=== PATIENT | male | born 1955 | race Caucasian/White ===

== ENCOUNTER 2018-01-02 09:43 | Inpatient (IN) | payer MEDICARE, OTHER ==
[2018-01-02] VITALS (16 sets, daily range): BP systolic 128–175; BP diastolic 70–85; PULSE 107–139; RESP 22–29; TEMP 97.8–98.7; O2SAT 89–96
[~2018-01-02] VITALS: Ht 172.7 cm; Wt 112.9 kg
[2018-01-02] MEDS ORDERED: methylPREDNISolone SOD SUCC 125 MG/2 ML VIAL IV PUSH ONE (10:00)
[2018-01-02 10:19] LABS: AUTOMATED NEUTROPHIL # 4.4 TH/MM3 (1.8-7.7); BASOPHIL % 0.6 % (0.0-2.0); EOSINOPHIL # 0.1 TH/MM3 (0-0.4); EOSINOPHIL % 1.2 % (0.0-4.0); HEMOGLOBIN 9.8 GM/DL (13.0-17.0); LYMPH % 29.5 % (9.0-44.0); LYMPHOCYTE # 2.2 TH/MM3 (1.0-4.8); MEAN CELL VOLUME 81.7 FL (80.0-100.0); MEAN CORPUSCULAR HGB CONC 30.6 % (32.0-36.0); MEAN PLATELET VOLUME 7.3 FL (7.0-11.0); MONO % 8.2 % (0.0-8.0); MONOCYTE # 0.6 TH/MM3 (0-0.9); NEUT % 60.5 % (16.0-70.0); PLATELET COUNT 217 TH/MM3 (150-450); RED BLOOD COUNT 3.92 MIL/MM3 (4.50-5.90); RED CELL DISTRIBUTION WIDTH 16.2 % (11.6-17.2); WHITE BLOOD COUNT 7.3 TH/MM3 (4.0-11.0)
[2018-01-02 10:30] LABS: INTERNATIONAL NORMALIZED RATIO 0.9 RATIO; PROTHROMBIN TIME - PATIENT 9.5 SEC (9.8-11.6)
[2018-01-02] MEDS: RESP: ALBUTEROL 2.5 MG/IPRATROPIUM 0.5 MG NEB (SCH) INH (10:32)
--- NOTE | 2018-01-02 10:35 | RADRPT ---
EXAM DATE/TIME: 01/02/2018 10:10 [facility] COMPARISON: No previous studies available for comparison. INDICATIONS : Shortness of breath. MEDICAL HISTORY : None. SURGICAL HISTORY : None. ENCOUNTER: Initial ACUITY: 1 day PAIN SCORE: 0/10 LOCATION: Bilateral chest FINDINGS: There is moderate cardiomegaly present. Diffuse cephalization of pulmonary vasculature and diffuse in terstitial thickening. Osseous structures are unremarkable. CONCLUSION: Radiographic findings consistent with congestive heart failure and pulmonary edema. Mckenzie Knapp MD on January 02, 2018 at 10:32 Board Certified Radiologist. This report was verified electronically.
--- NOTE | 2018-01-02 10:38 | RADRPT ---
EXAM DATE/TIME: 01/02/2018 10:12 [facility] COMPARISON: No previous studies available for comparison. INDICATIONS : Pain from fall. MEDICAL HISTORY : None. SURGICAL HISTORY : None. ENCOUNTER: Initial ACUITY: 1 day PAIN SCORE: 4/10 LOCATION: Right ankle. FINDINGS: Three view exam was performed of the right ankle. The bony structures are in normal alignment. No e vidence of acute fracture, dislocation, or soft tissue swelling. There is a cortical lucency involvi ng the medial malleolus with no adjacent soft tissue edema likely reflective of an old fracture. The ankle mortise is intact. No radiopaque foreign bodies are seen. Bony mineralization is normal. CONCLUSION: No acute disease. Mckenzie Knapp MD on January 02, 2018 at 10:34 Board Certified Radiologist. This report was verified electronically.
--- NOTE | 2018-01-02 10:38 | PD ---
HPI Chief Complaint: Fall Time Seen by Provider: 09:55 Travel History International Travel<30 days: No Contact w/Intl Traveler<30days: No Traveled to known affect area: No History of Present Illness HPI 62-year-old male with history of COPD on 4 L home O2, here by ambulance for evaluation of left ankle pain after mechanical fall. Patient states he felt weak and dizzy after waking up this morning and thought his sugar may be low so he ate some candy. He then fell to the ground, afterwards noticing immediate pain to his bilateral ankles, left greater than right, moderate, worse with movements. He denies LOC. He is unable to bear weight because of the pain. No neck or back pain. No upper extremity pain. No pain in any other joint. PFSH Past Medical History Diabetes: Yes ?: Not Social History Tobacco Use: No (Former smoker) Allergies-Medications (Allergen,Severity, Reaction): Coded Allergies: No Known Allergies (Unverified , 01/02/18) Reported Meds & Prescriptions Reported Meds & Active Scripts Active Reported Lanoxin (Digoxin) 125 Mcg Tablet 125 Mcg PO DAILY Vitamin B-12 (Cyanocobalamin) 1,000 Mcg Tab 1,000 Mcg PO DAILY Vitamin E (Vitamin E Acid Succinate) 400 Unit Tablet 400 Units PO DAILY Lisinopril 5 Mg Tab 5 Mg PO DAILY Diltiazem CD 24 HR 120 Mg Caper 120 Mg PO DAILY Isosorbide Mononitrate ER (Isosorbide Mononitrate) 30 Mg Ceasar 15 Mg PO DAILY Aspirin Adult Low Strength (Aspirin) 81 Mg Tabdr 81 Mg PO DAILY Gabapentin 300 Mg Cap 300 Mg PO BID Flomax (Tamsulosin HCl) 0.4 Mg Cap 0.4 Mg PO BID Proscar (Finasteride) 5 Mg Tab 5 Mg PO DAILY Do not crush. Metformin (Metformin HCl) 500 Mg Tab 500 Mg PO BID Hydrocodone-Acetamin 5-325 mg (Hydrocodone/Acetaminophen) 5 Mg-325 Mg Tablet 1 Tab PO Q6HR PRN Carafate (Sucralfate) 1 Gram Tab 1 Gm PO ACHS On empty stomach Omeprazole 20 Mg Tab 20 Mg PO BIDAC One-A-Day Mens (Multiple Vitamin) 400 Mcg-300 Mcg Tab 1 Tab PO DAILY Review of Systems Except as stated in HPI: all other systems reviewed are Neg Physical Exam Narrative GENERAL: Well-developed, well-nourished, moderate respiratory distress, pursed lip breathing SKIN: Focused skin assessment warm/dry. HEAD: Atraumatic. Normocephalic. EYES: Pupils equal and round. No scleral icterus. No injection or drainage. ENT: Mucous membranes pink and dry. Perioral cyanosis. NECK: Trachea midline. No JVD. CARDIOVASCULAR: Regular rate and rhythm. 1+ bilateral dorsalis pedis pulses. RESPIRATORY: Moderate resp distress, pursed lip breathing, speaking a few words at a time, poor air movement bilaterally GASTROINTESTINAL: Abdomen soft, non-tender, nondistended. MUSCULOSKELETAL: Moderate diffuse swelling to the left ankle with medial and lateral joint space tenderness without obvious bony deformity. The rest of his joints and extremities are without deformity, without tenderness, with normal range of motion. No proximal fibular tenderness bilaterally. All compartments in bilateral lower extremities are supple. NEUROLOGICAL: Awake and alert. No obvious cranial nerve deficits. Motor grossly within normal limits. Normal speech. PSYCHIATRIC: Appropriate mood and affect; insight and judgment normal. Data Data Last Documented VS Vital Signs Date Time Temp Pulse Resp B/P (MAP) Pulse Ox O2 Delivery O2 Flow Rate FiO2 01/02/18 11:27 25 01/02/18 11:15 124 128/70 (89) 90 BiPAP 40 01/02/18 10:21 6.00 01/02/18 09:53 97.8 Orders Orders Sepsis Workup Initiated (01/02/18 ) Electrocardiogram (01/02/18 09:59) Complete Blood Count With Diff (01/02/18 09:59) Comprehensive Metabolic Panel (01/02/18 09:59) Prothrombin Time / Inr (Pt) (01/02/18 09:59) Act Partial Throm Time (Ptt) (01/02/18 09:59) Lactic Acid Sepsis Protocol (01/02/18 09:59) Ckmb (Isoenzyme) Profile (01/02/18 09:59) Troponin I (01/02/18 09:59) Urinalysis - C+S If Indicated (01/02/18 09:59) Influenzae A/B Antigen (01/02/18 09:59) Blood Culture (01/02/18 09:59) Chest, Single Ap (01/02/18 09:59) Ecg Monitoring (01/02/18 09:59) Iv Access Insert/Monitor (5/12/18 09:59) Oximetry (01/02/18 09:59) Oxygen Administration (01/02/18 09:59) Methylprednisolone So Succ Inj (Solumedr (01/02/18 10:00) Albuterol-Ipratropium Neb (Duoneb Neb) (01/02/18 10:00) Ankle, Complete (Bcc5ucs) (01/02/18 ) Ankle, Complete (Mge7alw) (01/02/18 ) Arterial Blood Gas (Abg) (01/02/18 ) Splinting (01/02/18 ) B-Type Natriuretic Peptide (01/02/18 10:50) Morphine Inj (Morphine Inj) (01/02/18 11:00) Resp Bipap / Cpap Non Invas Vt (01/02/18 ) Morphine Inj (Morphine Inj) (01/02/18 11:30) Fiberglass Short Leg Splint Ad (01/02/18 ) Fiberglass Sugartong Sp Ad Sl (01/02/18 ) Admit Order (Ed Use Only) (01/02/18 11:49) Consult Orthopedic (01/02/18 ) Aspirin Ec (Ecotrin Ec) (01/03/18 09:00) Cyanocobalamin (Vitamin B12) (01/03/18 09:00) Digoxin (Lanoxin) (01/03/18 09:00) Diltiazem Cd (Cardizem Cd) (01/03/18 09:00) Finasteride (Proscar) (01/03/18 09:00) Gabapentin (Neurontin) (01/02/18 21:00) Acetamin-Hydrocod 325-5 Mg ([place] 5-325 (01/02/18 12:00) Sucralfate (Carafate) (01/02/18 12:00) Tamsulosin (Flomax) (01/02/18 21:00) Pantoprazole (Protonix) (01/02/18 16:00) Isosorbide Mononitrate (Ismo) (01/03/18 09:00) Labs Laboratory Tests Test 01/02/18 10:02 01/02/18 10:49 White Blood Count 7.3 TH/MM3 Red Blood Count 3.92 MIL/MM3 Hemoglobin 9.8 GM/DL Hematocrit 32.0 % Mean Corpuscular Volume 81.7 FL Mean Corpuscular Hemoglobin 25.0 PG Mean Corpuscular Hemoglobin Concent 30.6 % Red Cell Distribution Width 16.2 % Platelet Count 217 TH/MM3 Mean Platelet Volume 7.3 FL Neutrophils (%) (Auto) 60.5 % Lymphocytes (%) (Auto) 29.5 % Monocytes (%) (Auto) 8.2 % Eosinophils (%) (Auto) 1.2 % Basophils (%) (Auto) 0.6 % Neutrophils # (Auto) 4.4 TH/MM3 Lymphocytes # (Auto) 2.2 TH/MM3 Monocytes # (Auto) 0.6 TH/MM3 Eosinophils # (Auto) 0.1 TH/MM3 Basophils # (Auto) 0.0 TH/MM3 CBC Comment DIFF FINAL Differential Comment Prothrombin Time 9.5 SEC Prothromb Time International Ratio 0.9 RATIO Activated Partial Thromboplast Time 21.9 SEC Blood Urea Nitrogen 16 MG/DL Creatinine 1.18 MG/DL Random Glucose 132 MG/DL Total Protein 6.6 GM/DL Albumin 3.0 GM/DL Calcium Level 8.5 MG/DL Alkaline Phosphatase 88 U/L Aspartate Amino Transf (AST/SGOT) 24 U/L Alanine Aminotransferase (ALT/SGPT) 43 U/L Total Bilirubin 0.2 MG/DL Sodium Level 141 MEQ/L Potassium Level 4.9 MEQ/L Chloride Level 96 MEQ/L Carbon Dioxide Level 40.5 MEQ/L Anion Gap 5 MEQ/L Estimat Glomerular Filtration Rate 63 ML/MIN Lactic Acid Level 1.8 mmol/L Total Creatine Kinase 42 U/L Troponin I LESS THAN 0.02 NG/ML B-Type Natriuretic Peptide 107 PG/ML Blood Gas Puncture Site LT RADIAL Blood Gas Patient Temperature 98.6 Blood Gas HCO3 42 mmol/L Blood Gas Base Excess 15.1 mmol/L Blood Gas Oxygen Saturation 91 % Arterial Blood pH 7.30 Arterial Blood Partial Pressure CO2 87 mmHg Arterial Blood Partial Pressure O2 68 mmHG Arterial Blood Oxygen Content 12.7 Vol % Arterial Blood Carboxyhemoglobin 1.4 % Arterial Blood Methemoglobin 0.9 % Blood Gas Hemoglobin 9.8 G/DL Oxygen Delivery Device NASAL CANNULA Blood Gas Liter Flow 6 L/M [facility] Medical Decision Making Medical Screen Exam Complete: Yes Emergency Medical Condition: Yes Differential Diagnosis Left ankle fracture versus sprain, COPD exacerbation, pneumonia, PE, metabolic normality, hypoxia Narrative Course Initial vital signs show heart rate 108, blood pressure 133/72, pulse ox 90% on 6 L nasal cannula, oral temp of 98.7F. CBC: WBC 7.3, hemoglobin 9.8, hematocrit 32, platelets 217. CMP is remarkable for bicarb 40.5 Cardiac enzymes are negative. BNP is 107. Lactic acid is 1.8. ABG on 6 L nasal cannula: PH 7.3, PCO2 87, PO2 68. Chest x-ray is consistent with CHF. Left ankle x-ray shows comminuted and mildly displaced fractures of the medial malleolus, distal fibula, and posterior tibia. Patient was placed in a Islas splint. Patient was also placed on BiPAP. Patient will be admitted for further treatment and evaluation of CHF exacerbation, hypercapnia, closed left ankle fracture. Case discussed with cloth cutting inspector Dr. Carlin who will admit the patient to his service. The patient was made aware of all findings and plan for admission. Critical Care Narrative Aggregate critical care time was 35 minutes. Time to perform other separately billable procedures was not included in the critical care time. My time did not include minutes spent treating any other patients simultaneously or on activities that did not directly contribute to the patient's treatment. The services I provided to this patient were to treat and/or prevent clinically significant deterioration that could result in: , permanent disability, acute respiratory failure, worsening clinical condition I provided critical care services requiring my management, as noted below: Chart data review, documentation time, medication orders and management, vital sign assessments/reviewing monitor data, ordering and reviewing lab tests, ordering and interpreting/reviewing x-rays and diagnostic studies, care of the patient and discussion of the patient with the admitting physicians. Diagnosis Primary Impression: CHF exacerbation Qualified Codes: I50.9 - Heart failure, unspecified Additional Impressions: Hypercapnia Closed left ankle fracture Qualified Codes: S82.892A - Other fracture of left lower leg, initial encounter for closed fracture Admitting Information Admitting Physician Requests: Admit Scripts Hydrocodone-Acetaminophen ([place]) 7.5-325 mg Tab 1-2 TAB PO Q6H Y for PAIN, #90 TAB 0 Refills Prov: Alvaro Powell MD 01/03/18 Aspirin (Aspirin Low Dose) 81 Mg Chew 81 MG CHEW BID for Prevent Blood Clot for 30 Days, #60 TAB 0 Refills Prov: Alvaro Powell MD 01/03/18 Nima Peck MD January 02, 2018 10:38
--- NOTE | 2018-01-02 10:41 | RADRPT ---
EXAM DATE/TIME: 01/02/2018 10:15 [facility] COMPARISON: No previous studies available for comparison. INDICATIONS : Pain from fall. MEDICAL HISTORY : None. SURGICAL HISTORY : None. ENCOUNTER: Initial ACUITY: 1 day PAIN SCORE: 10/10 LOCATION: Left ankle. FINDINGS: 3 views of the left ankle demonstrate multiple fractures. There is a avulsion fracture of the medial malleolus with 7 mm of inferior displacement. There is an oblique fracture through the distal fibula with extension to the ankle mortise. The posterior tibia demonstrates an area of cortical irregularit y concerning for a nondisplaced fracture. The ankle mortise is disrupted. The talar dome is intact. S oft tissues demonstrate diffuse edema. The bones appear grossly normal mineralization. CONCLUSION: Comminuted mildly displaced fractures of the medial malleolus, distal fibula and suspicion for a post erior tibial fracture. The ankle mortise appears disrupted. The talar dome is intact. Mckenzie Knapp MD on January 02, 2018 at 10:36 Board Certified Radiologist. This report was verified electronically.
[2018-01-02] MEDS ORDERED: MORPHINE SULFATE 2 MG/ML SYRINGE IV PUSH ONE (11:00)
[2018-01-02 11:05] LABS: AST (GOT) 24 U/L (15-37); BICARBONATE 40.5 MEQ/L (21.0-32.0); BLOOD UREA NITROGEN 16 MG/DL (7-18); CALCIUM 8.5 MG/DL (8.5-10.1); CHLORIDE 96 MEQ/L (98-107); CREATININE 1.18 MG/DL (0.60-1.30); GLOMERULAR FILTRATION RATE 63 ML/MIN (>89); GLUCOSE,RANDOM 132 MG/DL (74-106); SODIUM (NA) 141 MEQ/L (136-145)
[2018-01-02 11:06] LABS: ALT (GPT) 43 U/L (12-78)
[2018-01-02 11:10] LABS: ALKALINE PHOSPHATASE 88 U/L (45-117); TOTAL BILIRUBIN ADULT 0.2 MG/DL (0.2-1.0); TOTAL PROTEIN 6.6 GM/DL (6.4-8.2); TROPONIN I LESS THAN 0.02 NG/ML (0.02-0.05)
[2018-01-02] MEDS ORDERED: GABA300C5 PO (11:23)
[2018-01-02] MEDS ORDERED: VITA400T18 PO (11:23)
[2018-01-02] MEDS ORDERED: ONE-TAB4 PO (11:23)
[2018-01-02] MEDS ORDERED: METF500T PO (11:23)
[2018-01-02] MEDS ORDERED: DILT120C50 PO (11:23)
[2018-01-02] MEDS ORDERED: VITA10002 PO (11:23)
[2018-01-02] MEDS ORDERED: OMEP20TA93 PO (11:23)
[2018-01-02] MEDS ORDERED: TAMS5CAP PO (11:23)
[2018-01-02] MEDS ORDERED: CARA1TAB6 PO (11:23)
[2018-01-02] MEDS ORDERED: HYDR-3516 PO (11:23)
[2018-01-02] MEDS ORDERED: LANO0.12 PO (11:23)
[2018-01-02] MEDS ORDERED: LISI-519 PO (11:23)
[2018-01-02] MEDS ORDERED: PROS5TAB PO (11:23)
[2018-01-02] MEDS ORDERED: ISOS30TA3 PO (11:23)
[2018-01-02] MEDS ORDERED: ASPI81TA16 PO (11:23)
[2018-01-02] MEDS ORDERED: MORPHINE SULFATE 4 MG/ML INJ IV PUSH ONE (11:30)
[2018-01-02] MEDS ORDERED: ACETAMINOPHEN/HYDROcodone 325 MG/5 MG TAB PO PRN (12:00)
[2018-01-02] MEDS ORDERED: PILL SPLITTER OTHER PRN (12:45)
--- NOTE | 2018-01-02 13:03 | HHI.HP ---
[facility] Service Critical Care Medicine Primary Care Physician Unknown Admission Diagnosis CHF exacerbation, hypercapnia, closed left ankle fracture Diagnosis: (1) Acute hypoxemic hypercarbic respiratory failure Diagnosis: Principal (2) Acute exacerbation of CHF (congestive heart failure) Diagnosis: Principal (3) Acute exacerbation of chronic obstructive pulmonary disease (COPD) Diagnosis: Principal (4) Closed left ankle fracture Diagnosis: Principal (5) Atrial fibrillation with RVR Diagnosis: Principal Chief Complaint: Status post fall with left ankle fracture COPD exacerbation Travel History International Travel<30 Days: No Contact w/Intl Traveler <30 Da: No Traveled to Known Affected Are: No History of Present Illness Patient is a 62-year-old male with past medical history significant for COPD on home oxygen 4 L, CHF, atrial fibrillation who presented to the emergency department for evaluation of left ankle pain after sustaining a fall. He felt weak, dizzy after waking up today and sustained a fall, had immediate pain to his bilateral ankles, predominantly left foot and ankle. X-ray of the left foot showed comminuted mildly displaced fractures of the medial malleolus, distal fibula and possible posterior tibial fracture. Dr. Islas ortho was consulted and patient's left foot was placed in a splint. The patient was hypoxemic and in moderate respiratory distress in the ED. His ABG on 6 L nasal cannula showed 7.3/80 7/69. Patient was placed on BiPAP 10/ with some improvement oxygenation. Chest x-ray showed evidence of CHF. Patient received IV Solu-Medrol and breathing treatments and critical care was requested to admit this patient for COPD CHF exacerbation and acute hypoxemic and hypercapnic respiratory failure. I evaluated the patient in the ED. He is in moderate distress on BiPAP. I am unable to get much history from him due to his shortness of breath on BiPAP. I have added IV Lasix 40 mg every 12, added scheduled Solu-Medrol and DuoNeb breathing treatments. Also empiric Levaquin for COPD exacerbation. His heart rate is 117-120. I will give additional dose of digoxin 0.25 mg IV 1. Patient may need esmolol or Amiodarone infusion if rate is not adequately controlled Review of Systems ROS Limitations: Clinical Condition (On BiPAP) Past Family Social History Allergies: Coded Allergies: No Known Allergies (Unverified , 01/02/18) Past Medical History COPD on 4 L home oxygen CHF Chronic atrial fibrillation Morbid obesity Type 2 diabetes Past Surgical History Unable to obtain any surgical history due to clinical condition Reported Medications Lanoxin (Digoxin) 125 Mcg Tablet 125 Mcg PO DAILY Vitamin B-12 (Cyanocobalamin) 1,000 Mcg Tab 1,000 Mcg PO DAILY Vitamin E (Vitamin E Acid Succinate) 400 Unit Tablet 400 Units PO DAILY Lisinopril 5 Mg Tab 5 Mg PO DAILY Diltiazem CD 24 HR 120 Mg Caper 120 Mg PO DAILY Isosorbide Mononitrate ER (Isosorbide Mononitrate) 30 Mg Ceasar 15 Mg PO DAILY Aspirin Adult Low Strength (Aspirin) 81 Mg Tabdr 81 Mg PO DAILY Gabapentin 300 Mg Cap 300 Mg PO BID Flomax (Tamsulosin HCl) 0.4 Mg Cap 0.4 Mg PO BID Proscar (Finasteride) 5 Mg Tab 5 Mg PO DAILY Metformin (Metformin HCl) 500 Mg Tab 500 Mg PO BID Hydrocodone-Acetamin 5-325 mg (Hydrocodone/Acetaminophen) 5 Mg-325 Mg Tablet 1 Tab PO Q6HR PRN Carafate (Sucralfate) 1 Gram Tab 1 Gm PO ACHS Omeprazole 20 Mg Tab 20 Mg PO BIDAC One-A-Day Mens (Multiple Vitamin) 400 Mcg-300 Mcg Tab 1 Tab PO DAILY Active Ordered Medications Reviewed Family History Unable to obtain as the patient is on BiPAP and short of breath Social History Quit smoking 2 years ago, did not consume alcohol now Physical Exam Vital Signs Vital Signs Date Time Temp Pulse Resp B/P (MAP) Pulse Ox O2 Delivery O2 Flow Rate FiO2 01/02/18 12:05 130 25 143/81 (101) 89 BiPAP 40 01/02/18 11:27 25 01/02/18 11:15 124 25 128/70 (89) 90 BiPAP 40 01/02/18 11:15 96 40 01/02/18 10:21 89 Nasal Cannula 6.00 01/02/18 10:21 89 Nasal Cannula 6.00 01/02/18 09:53 97.8 107 22 133/72 (92) 90 Nasal Cannula 6.00 01/02/18 09:53 22 90 Nasal Cannula 6.00 01/02/18 09:44 98.7 108 22 133/72 (92) 90 Physical Exam GENERAL: Well-developed, well-nourished, moderate respiratory distress, currently on BiPAP SKIN: WARM AND DRY HEAD: Atraumatic. Normocephalic. EYES: Pupils equal and round. No injection or drainage. ENT: Mucous membranes dry. BiPAP mask limits exam NECK: Trachea midline. No JVD. CARDIOVASCULAR: Currently in A. fib with RVR. No murmurs RESPIRATORY: Moderate resp distress, on BiPAP, poor air movement bilaterally with bilateral expiratory wheezing GASTROINTESTINAL: Abdomen soft, non-tender, nondistended. MUSCULOSKELETAL: Left foot in splint NEUROLOGICAL: Awake and alert. No obvious cranial nerve deficits. Motor grossly within normal limits. Normal speech. Laboratory Laboratory Tests Test 01/02/18 10:02 01/02/18 10:49 White Blood Count 7.3 Red Blood Count 3.92 Hemoglobin 9.8 Hematocrit 32.0 Mean Corpuscular Volume 81.7 Mean Corpuscular Hemoglobin 25.0 Mean Corpuscular Hemoglobin Concent 30.6 Red Cell Distribution Width 16.2 Platelet Count 217 Mean Platelet Volume 7.3 Neutrophils (%) (Auto) 60.5 Lymphocytes (%) (Auto) 29.5 Monocytes (%) (Auto) 8.2 Eosinophils (%) (Auto) 1.2 Basophils (%) (Auto) 0.6 Neutrophils # (Auto) 4.4 Lymphocytes # (Auto) 2.2 Monocytes # (Auto) 0.6 Eosinophils # (Auto) 0.1 Basophils # (Auto) 0.0 CBC Comment DIFF FINAL Differential Comment Prothrombin Time 9.5 Prothromb Time International Ratio 0.9 Activated Partial Thromboplast Time 21.9 Blood Urea Nitrogen 16 Creatinine 1.18 Random Glucose 132 Total Protein 6.6 Albumin 3.0 Calcium Level 8.5 Alkaline Phosphatase 88 Aspartate Amino Transf (AST/SGOT) 24 Alanine Aminotransferase (ALT/SGPT) 43 Total Bilirubin 0.2 Sodium Level 141 Potassium Level 4.9 Chloride Level 96 Carbon Dioxide Level 40.5 Anion Gap 5 Estimat Glomerular Filtration Rate 63 Lactic Acid Level 1.8 Total Creatine Kinase 42 Troponin I LESS THAN 0.02 B-Type Natriuretic Peptide 107 Blood Gas Puncture Site LT RADIAL Blood Gas Patient Temperature 98.6 Blood Gas HCO3 42 Blood Gas Base Excess 15.1 Blood Gas Oxygen Saturation 91 Arterial Blood pH 7.30 Arterial Blood Partial Pressure CO2 87 Arterial Blood Partial Pressure O2 68 Arterial Blood Oxygen Content 12.7 Arterial Blood Carboxyhemoglobin 1.4 Arterial Blood Methemoglobin 0.9 Blood Gas Hemoglobin 9.8 Oxygen Delivery Device NASAL CANNULA Blood Gas Liter Flow 6 Date/Time Source Procedure Growth Status 01/02/18 10:07 Blood Peripheral Aerobic Blood Culture Pending Received 01/02/18 10:07 Blood Peripheral Anaerobic Blood Culture Pending Received 01/02/18 10:02 Nasal Washing Influenza Types A,B Antigen (SABRINA) - Final NEGATIVE FOR FLU A AND B ANTIGEN.... Complete Result Diagram: 01/02/18 1002 01/02/18 1002 Imaging Chest x-ray shows pulmonary X-ray left ankle shows fracture as above Septic Shock Reassessment Septic shock perfusion: reassessment completed Caprini VTE Risk Assessment Caprini VTE Risk Assessment: Mod/High Risk (score >= 2) Caprini Risk Assessment Model Point Value = 1 Point Value = 2 Point Value = 3 Point Value = 5 Age 41-60 Minor surgery BMI > 25 kg/m2 Swollen legs Varicose veins or History of unexplained or recurrent spontaneous Oral contraceptives or hormone replacement Sepsis (< 1 month) Serious lung disease, including pneumonia (< 1 month) Abnormal pulmonary function Acute myocardial infarction Congestive heart failure (< 1 month) History of inflammatory bowel disease Medical patient at bed rest Age 61-74 Arthroscopic surgery Major open surgery (> 45 min) Laparoscopic surgery (> 45 min) Malignancy Confined to bed (> 72 hours) Immobilizing plaster cast Central venous access Age >= 75 History of VTE Family history of VTE Factor V Leiden Prothrombin [id number] Lupus anticoagulant Anticardiolipin antibodies Elevated serum homocysteine Heparin-induced thrombocytopenia Other congenital or acquired thrombophilia Stroke (< 1 month) Elective arthroplasty Hip, pelvis, or leg fracture Acute spinal cord injury (< 1 month) Prophylaxis Regimen Total Risk Factor Score Risk Level Prophylaxis Regimen 0-1 Low Early ambulation 2 Moderate Order ONE of the following: *Sequential Compression Device (SCD) *Heparin 5000 units SQ BID 3-4 Higher Order ONE of the following medications: *Heparin 5000 units SQ TID *Enoxaparin/Lovenox 40 mg SQ daily (WT < 150 kg, CrCl > 30 mL/min) *Enoxaparin/Lovenox 30 mg SQ daily (WT < 150 kg, CrCl > 10-29 mL/min) *Enoxaparin/Lovenox 30 mg SQ BID (WT < 150 kg, CrCl > 30 mL/min) AND/OR *Sequential Compression Device (SCD) 5 or more Highest Order ONE of the following medications: *Heparin 5000 units SQ TID (Preferred with Epidurals) *Enoxaparin/Lovenox 40 mg SQ daily (WT < 150 kg, CrCl > 30 mL/min) *Enoxaparin/Lovenox 30 mg SQ daily (WT < 150 kg, CrCl > 10-29 mL/min) *Enoxaparin/Lovenox 30 mg SQ BID (WT < 150 kg, CrCl > 30 mL/min) AND *Sequential Compression Device (SCD) Assessment and Plan Assessment and Plan NEURO: Musculoskeletal skeletal pain from left ankle fracture -As needed [place] for pain. Morphine for breakthrough pain RESP: Acute on chronic hypoxemic and hypercarbic respiratory failure Acute COPD exacerbation -BiPAP 07/28. DuoNeb every 4 hours scheduled and as needed -IV Solu-Medrol 125 mg given in the ED, continue 60 mg IV every 8 hours -Add Symbicort and Spiriva -Levaquin empirically for COPD exacerbation CV: CHF exacerbation Atrial fibrillation with RVR -Start IV Lasix 40 mg 12 hour -Continue home rate control medications including digoxin Cardizem -Use esmolol or amiodarone drip for rate control -Check 2D echo -Continue aspirin -Patient is not on full anticoagulation at home GI: -N.p.o. except meds. Full liquid diet if respiratory status improved -Continue home PPI : -Monitor renal function closely. Place English catheter if needed ID: -Check sputum culture, IV Levaquin for COPD exacerbation HEME: -Monitor CBC, CMP, coags ENDO: Type 2 diabetes -Electrolyte replacement per protocol -Sliding-scale insulin hold metformin PROPH: -Bilateral lower extremity SCDs. Heparin sq/PPI LINES: Utilize peripheral IVs, central line if needed CC time 42 min Code Status Full Discussed Condition With Dr. Peck and the patient Problem Qualifiers (1) Closed left ankle fracture: Qualified Codes: S82.892A - Other fracture of left lower leg, initial encounter for closed fracture Jose Carlin MD January 02, 2018 13:03
[2018-01-02] MEDS: INSULIN ASPART SUPPLEMENTAL SCALE SQ SCH ×3 (13:15→21:19)
[2018-01-02] MEDS ORDERED: RESP: ALBUTEROL 2.5 MG/IPRATROPIUM 0.5 MG NEB (PRN) NEB (13:15)
[2018-01-02] MEDS ORDERED: DIGOXIN 0.5 MG/2 ML VIAL IV PUSH ONE (13:30)
[2018-01-02] MEDS: SUCRALFATE 1 GM TAB PO SCH ×3 (14:44→21:19)
[2018-01-02] MEDS: LEVOFLOXACIN 750 MG PREMIX INJ 150 ML IV SCH (14:45)
[2018-01-02] MEDS: BUDESONIDE-FORMOTEROL 160/4.5 MCG INHALER INH SCH ×2 (14:45→21:19)
[2018-01-02] MEDS: HEPARIN SODIUM - SQ 10,000 UNITS/ML VIAL SQ SCH ×2 (14:46→21:19)
[2018-01-02] MEDS: RESP: ALBUTEROL 2.5 MG/IPRATROPIUM 0.5 MG NEB (SCH) NEB ×3 (14:56→23:36)
[2018-01-02] MEDS: PANTOPRAZOLE SOD 20 MG DELAYED RELEASE TAB PO SCH (16:50)
[2018-01-02 16:54] LABS: BACTERIA, URINE MANY /hpf; BILIRUBIN, URINE NEG (NEG); BLOOD, URINE TRACE (NEG); GLUCOSE,URINE NEG (NEG); KETONE, URINE NEG (NEG); MUCUS URINE FEW /lpf (OCC); NITRITE,URINE NEG (NEG); PH, URINE 5.5 (5.0-8.5); URINE COLOR YELLOW (YELLW/STRAW); URINE LEUKOCYTE ESTERASE TRACE (NEG)
[2018-01-02] MEDS: methylPREDNISolone SOD SUCC 125 MG/2 ML VIAL IV PUSH SCH (17:09)
[2018-01-02] MEDS: FUROSEMIDE 40 MG/4 ML VIAL IV PUSH SCH (17:10)
--- NOTE | 2018-01-02 18:03 | EKG ---
Date Performed: 01/02/2018 Time Performed: 12:00:30 PTAGE: 62 years EKG: ATRIAL FIBRILLATION WITH RAPID VENTRICULAR RESPONSE MARKED LEFT AXIS DEVIATION MODERATE ST DEPRESSION ABNORMAL ECG NO PREVIOUS TRACING DOCTOR: Pa Barnhart Interpretating Date/Time 01/02/2018 18:02:57
[2018-01-02] MEDS: TAMSULOSIN HCL 0.4 MG CAP PO SCH (21:19)
[2018-01-02] MEDS: GABAPENTIN 300 MG CAP PO SCH (21:19)
[2018-01-02] MEDS: MORPHINE SULFATE 4 MG/ML INJ IV PUSH PRN (21:20)
[2018-01-03] VITALS (12 sets, daily range): BP systolic 97–155; BP diastolic 55–84; PULSE 103–119; RESP 18–25; TEMP 97.7–99; O2SAT 89–96
[2018-01-03] MEDS: methylPREDNISolone SOD SUCC 125 MG/2 ML VIAL IV PUSH SCH (00:52)
[2018-01-03] MEDS: INSULIN ASPART SUPPLEMENTAL SCALE SQ SCH ×7 (03:58→23:54)
[2018-01-03] MEDS: MORPHINE SULFATE 4 MG/ML INJ IV PUSH PRN ×4 (03:59→20:41)
[2018-01-03] MEDS: RESP: ALBUTEROL 2.5 MG/IPRATROPIUM 0.5 MG NEB (SCH) NEB ×4 (04:24→21:08)
--- NOTE | 2018-01-03 04:39 | RADRPT ---
EXAM DATE/TIME: 01/03/2018 04:24 [facility] COMPARISON: CHEST SINGLE AP, January 02, 2018, 10:10. INDICATIONS : Shortness of breath, possible pulmonary edema. MEDICAL HISTORY : None. SURGICAL HISTORY : None. ENCOUNTER: Subsequent ACUITY: 2 days PAIN SCORE: 0/10 LOCATION: Bilateral chest FINDINGS: A single view of the chest demonstrates the lungs to be symmetrically aerated without evidence of mas s, infiltrate or effusion. The heart size remains prominent with no perihilar edema. Osseous structu res are intact. CONCLUSION: Mild cardiomegaly with no acute cardiopulmonary disease. Froylan Feliciano MD on January 03, 2018 at 4:37 Board Certified Radiologist. This report was verified electronically.
[2018-01-03 05:01] LABS: ALBUMIN 3.1 GM/DL (3.4-5.0); ALKALINE PHOSPHATASE 81 U/L (45-117); ALT (GPT) 36 U/L (12-78); AST (GOT) 21 U/L (15-37); BICARBONATE 38.1 MEQ/L (21.0-32.0); BLOOD UREA NITROGEN 22 MG/DL (7-18); CALCIUM 9.6 MG/DL (8.5-10.1); CHLORIDE 93 MEQ/L (98-107); CREATININE 1.35 MG/DL (0.60-1.30); GLOMERULAR FILTRATION RATE 54 ML/MIN (>89); GLUCOSE,RANDOM 183 MG/DL (74-106); MAGNESIUM 2.1 MG/DL (1.5-2.5); SODIUM (NA) 138 MEQ/L (136-145); TOTAL BILIRUBIN ADULT 0.3 MG/DL (0.2-1.0); TOTAL PROTEIN 6.8 GM/DL (6.4-8.2)
[2018-01-03] MEDS: HEPARIN SODIUM - SQ 10,000 UNITS/ML VIAL SQ SCH (05:29)
[2018-01-03] MEDS: PANTOPRAZOLE SOD 20 MG DELAYED RELEASE TAB PO SCH ×2 (05:30→15:00)
[2018-01-03] MEDS: SUCRALFATE 1 GM TAB PO SCH ×4 (08:03→20:40)
[2018-01-03] MEDS: CYANOCOBALAMIN 1,000 MCG TAB PO SCH (08:03)
[2018-01-03] MEDS: FUROSEMIDE 40 MG/4 ML VIAL IV PUSH SCH (08:04)
[2018-01-03] MEDS: GABAPENTIN 300 MG CAP PO SCH ×2 (08:04→20:40)
[2018-01-03] MEDS: DIGOXIN 0.125 MG TAB PO SCH (08:04)
[2018-01-03] MEDS: DILTIAZEM-CD 120 MG CAP ER PO SCH (08:04)
[2018-01-03] MEDS: ISOSORBIDE MONONITRATE 20 MG TAB PO SCH (08:04)
[2018-01-03] MEDS: FINASTERIDE 5 MG TAB PO SCH (08:04)
[2018-01-03] MEDS: TAMSULOSIN HCL 0.4 MG CAP PO SCH ×2 (08:04→20:40)
[2018-01-03] MEDS: BUDESONIDE-FORMOTEROL 160/4.5 MCG INHALER INH SCH ×2 (08:05→20:30)
[2018-01-03] MEDS: TIOTROPIUM BROMIDE 18 MCG INH INH SCH (09:00)
[2018-01-03] MEDS: ASPIRIN EC 81 MG TABEC PO SCH (09:00)
[2018-01-03] MEDS ORDERED: ACETAMINOPHEN 1000 MG/100 ML 100 ML IV ONE (09:40)
[2018-01-03] MEDS ORDERED: VANCOMYCIN HCL 1000 MG VIAL ONE (10:30)
[2018-01-03] MEDS ORDERED: ceFAZolin 2 GM PREMIX 50 ML ONE (10:30)
[2018-01-03] MEDS ORDERED: SODIUM CHLOR 0.9% 250 ML INJ 250 ML ONE (10:31)
--- NOTE | 2018-01-03 11:09 | HHI.CCPN ---
Subjective Remarks/Hospital Course Patient is a 62-year-old male with past medical history significant for COPD on home oxygen 4 L, CHF, atrial fibrillation who presented to the emergency department for evaluation of left ankle pain after sustaining a fall. He felt weak, dizzy after waking up and sustained a fall, had pain to his bilateral ankles, predominantly left foot and ankle. X-ray of the left foot showed comminuted mildly displaced fractures of the medial malleolus, distal fibula and possible posterior tibial fracture. Ortho was consulted and patient's left foot was placed in a splint. The patient was hypoxemic and in moderate respiratory distress in the ED. His ABG on 6 L nasal cannula showed 7.3/80 7/ 69. Patient was placed on BiPAP 05/28 with some improvement oxygenation. Chest x-ray showed evidence of CHF. Patient received IV Solu-Medrol and breathing treatments and critical care was requested to admit this patient for COPD CHF exacerbation and acute hypoxemic and hypercapnic respiratory failure. I evaluated the patient in the ED. He is in moderate distress on BiPAP. I am unable to get much history from him due to his shortness of breath on BiPAP. I have added IV Lasix 40 mg every 12, added scheduled Solu-Medrol and DuoNeb breathing treatments. Also empiric Levaquin for COPD exacerbation. His heart rate is 117-120. I will give additional dose of digoxin 0.25 mg IV 1. Patient may need esmolol or Amiodarone infusion if rate is not adequately controlled 01/03/18: Patient is clinically improved. Chest x-ray shows improved pulmonary vascular congestion. Patient refused BiPAP overnight currently breathing better good oxygen saturation on nasal cannula. Plan for ORIF left ankle fracture by Dr. Powell today Objective Vital Signs Date Time Temp Pulse Resp B/P (MAP) Pulse Ox O2 Delivery O2 Flow Rate FiO2 01/03/18 08:10 18 01/03/18 07:41 92 Nasal Cannula 6.00 01/03/18 06:00 111 01/03/18 04:00 98.8 155/74 (101) 01/02/18 12:05 40 Intake and Output 01/03/18 01/03/18 01/04/18 08:00 16:00 00:00 Intake Total 480 ml Output Total 3750 ml Balance -3270 ml Result Diagram: 01/02/18 1002 01/03/18 1365 Other Results Microbiology Date/Time Source Procedure Growth Status 01/02/18 10:02 Nasal Washing Influenza Types A,B Antigen (SABRINA) - Final NEGATIVE FOR FLU A AND B ANTIGEN.... Complete Imaging Chest x-ray shows pulmonary X-ray left ankle shows fracture as above Objective Remarks GENERAL: Well-developed, well-nourished, currently on NC breathing more comfortably SKIN: Warm/Dry HEAD: Atraumatic. Normocephalic. EYES: Pupils equal and round. No injection or drainage. ENT: NC o2. Oral cavity is moist airway patent NECK: Trachea midline. No JVD. CARDIOVASCULAR: Currently in A. fib rate controlled. No murmurs RESPIRATORY: Breathing more comfortably today bilateral air entry is improved, mild bilateral expiratory wheezing GASTROINTESTINAL: Abdomen soft, non-tender, nondistended. MUSCULOSKELETAL: Left foot in splint NEUROLOGICAL: Awake and alert. No obvious cranial nerve deficits. Motor grossly within normal limits. Normal speech. A/P Assessment and Plan NEURO: Musculoskeletal skeletal pain from left ankle fracture -As needed [place] for pain. Morphine for breakthrough pain RESP: Acute on chronic hypoxemic and hypercarbic respiratory failure Acute COPD exacerbation -BiPAP 12/5 PRN. DuoNeb every 6 hours scheduled and as needed. -IV Solu-Medrol 125 mg given in the ED, on 60 mg IV every 8 hours. -Reduce to 40 mg IV q8h -Continue Symbicort and Spiriva -Levaquin empirically for COPD exacerbation CV: CHF exacerbation Atrial fibrillation with RVR -On IV Lasix 40 mg 12 hour. 3.5L UO since admission yesterday evening. Change Lasix to 20 mg p.o. daily -Continue home rate control medications including digoxin Cardizem -Use esmolol or amiodarone drip for rate control if needed -Await 2D echo -Continue aspirin -Patient is not on full anticoagulation at home, Hold any anticoagulation in anticipation of ankle surgery GI: -NPO for OR -Continue home PPI : -Monitor renal function closely. English catheter ID: -F/u sputum culture, IV Levaquin for COPD exacerbation HEME: -Monitor CBC, CMP, coags ENDO: Type 2 diabetes -Electrolyte replacement per protocol -Sliding-scale insulin hold metformin PROPH: -Bilateral lower extremity SCDs. Heparin sq/PPI LINES: Utilize peripheral IVs, central line if needed Level 3 The patient is stable post op will transfer the HEPAS from 01/04/18. Consult placed Jose Carlin MD January 03, 2018 11:09
[2018-01-03] MEDS ORDERED: DEXT 5%-NACL 0.45% 1000 ML INJ 1,000 ML IV SCH (11:55)
[2018-01-03] MEDS ORDERED: HYDR-3288 PO (11:58)
[2018-01-03] MEDS ORDERED: ASPI81CH6 CHEW (11:58)
[2018-01-03] MEDS ORDERED: PHARMACY INFORMATION XX ONE (12:00)
[2018-01-03] MEDS ORDERED: MAGNESIUM HYDROXIDE SUSP 30 ML CUP PO PRN (12:00)
[2018-01-03] MEDS ORDERED: Post-op Orders (for Pharmacy) XX ONE (12:00)
[2018-01-03] MEDS ORDERED: NURSING INFORMATION XX PRN (12:00)
[2018-01-03] MEDS ORDERED: diphenhydrAMINE HCL 25 MG CAP PO PRN (12:00)
[2018-01-03] MEDS ORDERED: ONDANSETRON HCL 4 MG/2 ML VIAL IVP PRN (12:00)
[2018-01-03] MEDS ORDERED: ACETAMINOPHEN/HYDROcodone 325 MG/7.5 MG TAB PO PRN (12:00)
[2018-01-03] MEDS ORDERED: MORPHINE SULFATE 4 MG/ML INJ IV PUSH PRN (12:00)
[2018-01-03] MEDS ORDERED: *RESP: ALBUTEROL 2.5 MG/3 ML NEB (PRN) PERIprocedural Use ONLY NEB ONE (12:06)
[2018-01-03] MEDS ORDERED: METOPROLOL TARTRATE 5 MG/5 ML VIAL ONE (12:14)
--- NOTE | 2018-01-03 12:14 | MP ---
cc: Alvaro Powell MD DATE OF OPERATION: PREOPERATIVE DIAGNOSIS: Left trimalleolar ankle fracture. POSTOPERATIVE DIAGNOSIS: Left trimalleolar ankle fracture. PROCEDURE PERFORMED: Open reduction, internal fixation of the left trimalleolar ankle fracture. SURGEON: Alvaro Powell MD GENERALIST: KARIS Argueta ANESTHESIA: General. ESTIMATED BLOOD LOSS: 100 mL TOURNIQUET TIME: Zero minutes. COMPLICATIONS: None. IMPLANTS USED: Synthes. INDICATIONS: The patient is a 62-year-old male who fell sustaining a displaced comminuted left ankle trimalleolar fracture with a partial dislocation and displacement. He presents to [facility] Emergency Room. X-rays confirmed the above named findings. Orthopedic surgery was consulted. The patient was counseled as to the risks, benefits and alternatives to the above named proposed surgical procedure. He did wish to proceed with surgery. PROCEDURE IN DETAIL: Written consent was obtained. The patient was identified by name, taken to the operating room and placed supine on the operating table. General anesthesia was administered as well as 2 grams of IV Ancef and 1 gram of IV vancomycin. The left lower extremity was prepped and draped using isopropyl alcohol, Hibiclens solution and ChloraPrep solution. A timeout was performed. A longitudinal incision was made over the lateral aspect of left ankle. The fascial layer was incised. Periosteum elevated off the distal fibula. There was severe comminution of the distal fibula where the fracture was in multiple fragments. Fracture reduction tenaculum assisted with fracture reduction and a 2.7 mm lag screw was initially placed. Yves Talavera physician litigation assistant assisted with fracture reduction while I was able to apply a Synthes distal tibial locking plate, a combination of both locking and nonlocking screws were used for fixation. Fluoroscopic imaging confirmed hardware placement, fracture reduction. The wound was thoroughly irrigated with sterile saline solution. The fascial layer was closed with 2-0 Vicryl suture, subcutaneous layer with 2-0 Vicryl suture, skin was closed with samir. Attention was turned to the medial aspect of the left ankle where a longitudinal incision was made over the medial malleolus. Fracture reduction was performed. Again, there was also evidence of severe comminution along the medial malleolar fracture fragment as well. Two guidewires were then drilled transverse in the fracture and subsequently 2 Synthes 4.0 mm partially threaded cannulated screws were inserted over the guidewires for screw fixation of the medial malleolar fracture fragment. With both lateral and medial malleolus fracture fragments reduced and fixated, the posterior malleolar fragment showed good alignment. The wound was thoroughly irrigated with sterile saline solution. Subcutaneous layer on the medial aspect was closed with combination of 2-0 Vicryl suture and 3-0 Vicryl suture with closure of the skin with samir. Sterile dressing applied. The patient was placed in a well-padded splint. The patient tolerated the procedure well, no intraoperative complications noted. Yves Talavera physician litigation assistant, luis fernando assisted in the entire procedure including patient position and the procedure itself. The medical necessity of physician litigation assistant was indicated in this case due to the complexity of the procedure. He assisted with appropriate manipulation of the leg and also retraction of muscle, tendon, bone, neurovascular structures. He assisted with both achieving and maintaining fracture reduction along with implantation of the internal fixation device. Alvaro Powell MD JWM/TL , 11:54 AM , 12:12 PM
[2018-01-03] MEDS ORDERED: MIDAZOLAM HCL 2 MG/2 ML VIAL ONE (12:15)
--- NOTE | 2018-01-03 12:34 | MB ---
cc: Alvaro Powell MD DATE: 01/03/2018 REASON FOR CONSULTATION: Left trimalleolar ankle fracture dislocation. HISTORY OF PRESENT ILLNESS: This patient is a 62-year-old male with past history of COPD, on home oxygen, congestive heart failure, atrial fibrillation, who presents to [facility] Emergency Room after sustaining a fall. He sustained severe injury to his left ankle. He had immediate onset of pain, swelling, which is constant, 10/10, was unable to stand, bear weight or move the ankle without excruciating pain. He denies numbness or tingling. Denies hitting his head. Denies loss of consciousness. X-rays confirm evidence of a displaced trimalleolar ankle fracture dislocation. He has been splinted. Orthopedic surgery has been consulted. The patient was admitted to the medical service and was initially transferred to the medical intensive care unit to help manage his congestive heart failure and COPD as a preoperative measure. PAST MEDICAL HISTORY: Positive for COPD, oxygen dependent, congestive heart failure, atrial fibrillation, morbid obesity, diabetes mellitus. MEDICATIONS: Include digoxin, multivitamin, lisinopril, diltiazem, isosorbide, aspirin, Neurontin, Flomax, Proscar, Glucophage, Mertens, sucralfate, omeprazole. FAMILY HISTORY: Reviewed and unremarkable. SOCIAL HISTORY: He has history of prior smoking. Does not currently smoke or drink, or use drugs. REVIEW OF SYSTEMS: Positive for chronic shortness of breath with exertion and intermittent chest pain. Otherwise, review of systems negative for 10 systems. PHYSICAL EXAMINATION: VITAL SIGNS: Temperature 98.7, pulse 100, respirations 22, blood pressure 133/72. GENERAL: The patient is an obese male, awake, alert, lying in bed, mild distress. He currently has his oxygen off and is breathing well without distress. HEENT: Normocephalic, atraumatic. Pupils round. Extraocular muscles intact. NECK: Supple. LUNGS: Clear. HEART: S1, S2 irregular. ABDOMEN: Obese, soft, nontender. EXTREMITIES: Left lower extremity has swelling, ecchymosis, deformity. His ankle is currently splinted. Brisk capillary refill. Sensation intact distally. Compartments are soft. He can flex and extend his toes distally. LABORATORY DATA: White blood cell count 7.3, hematocrit 32, platelets 217. BUN 16, creatinine 1.18, glucose 132. IMPRESSION: A 62-year-old male status post fall, left ankle trimalleolar fracture dislocation, severe chronic obstructive pulmonary disease, oxygen dependent, congestive heart failure, morbid obesity, diabetes mellitus. PLAN: Discussed diagnosis with patient and treatment. Also discussed nonoperative treatment versus surgery. Surgery would consist of open reduction and internal fixation. Risks of surgery were discussed, which include, but limited to, anesthesia, bleeding, infection, damage to nerves and blood vessels, pain symptoms, failed hardware, blood clots, pulmonary embolism and even . The patient's pain is severe. He favored the benefits over the risks. He did wish to proceed with surgery. Written consent has been obtained and surgical site has been marked. MD SAL Quick/INDIRA , 11:51 AM , 12:33 PM
[2018-01-03] MEDS ORDERED: DO NOT ADM ANY ANTICOAGULANT DRUGS PRN (12:45)
--- NOTE | 2018-01-03 14:38 | RADRPT ---
EXAM DATE/TIME: 01/03/2018 11:35 [place] COMPARISON: No previous studies available for comparison. INDICATIONS : Open reduction, internal fixation. Plate placement. MEDICAL HISTORY : None. SURGICAL HISTORY : None. ENCOUNTER: Initial ACUITY: 1 day PAIN SCORE: Non-responsive. LOCATION: Left ankle. FINDINGS: Plate with screws is seen bridging the fibular fracture. 2 cortical lag screws are seen bridging the medial malleolus fracture. Anatomic alignment. CONCLUSION: Anatomic alignment.. Derian Oneill MD FACR on January 03, 2018 at 14:34 Board Certified Radiologist. This report was verified electronically.
[2018-01-03] MEDS: LEVOFLOXACIN 750 MG PREMIX INJ 150 ML IV SCH (15:00)
[2018-01-03] MEDS: methylPREDNISolone SOD SUCC 40 MG/1 ML VIAL IV PUSH SCH (17:41)
[2018-01-03] MEDS: DOCUSATE SODIUM 50 MG/SENNA 8.6 MG TAB PO SCH (20:30)
[2018-01-04] VITALS (11 sets, daily range): BP systolic 122–162; BP diastolic 59–74; PULSE 101–113; RESP 14–22; TEMP 98.2–98.8; O2SAT 90–96
[2018-01-04] MEDS: methylPREDNISolone SOD SUCC 40 MG/1 ML VIAL IV PUSH SCH ×3 (01:37→21:57)
[2018-01-04] MEDS ORDERED: METOPROLOL TARTRATE 5 MG/5 ML VIAL IV PUSH ONE (02:30)
[2018-01-04] MEDS: INSULIN ASPART SUPPLEMENTAL SCALE SQ SCH ×5 (03:18→21:58)
[2018-01-04] MEDS: RESP: ALBUTEROL 2.5 MG/IPRATROPIUM 0.5 MG NEB (SCH) NEB ×4 (03:35→22:31)
[2018-01-04] MEDS: MORPHINE SULFATE 4 MG/ML INJ IV PUSH PRN ×3 (04:55→16:53)
[2018-01-04] MEDS: PANTOPRAZOLE SOD 20 MG DELAYED RELEASE TAB PO SCH ×2 (05:55→16:15)
[2018-01-04 06:26] LABS: HEMATOCRIT 32.7 % (39.0-51.0); HEMOGLOBIN 10.3 GM/DL (13.0-17.0); MEAN CELL VOLUME 79.5 FL (80.0-100.0); MEAN CORPUSCULAR HEMOGLOBIN 25.1 PG (27.0-34.0); MEAN CORPUSCULAR HGB CONC 31.6 % (32.0-36.0); MEAN PLATELET VOLUME 7.7 FL (7.0-11.0); PLATELET COUNT 257 TH/MM3 (150-450); RED BLOOD COUNT 4.12 MIL/MM3 (4.50-5.90); RED CELL DISTRIBUTION WIDTH 16.3 % (11.6-17.2); WHITE BLOOD COUNT 10.8 TH/MM3 (4.0-11.0)
[2018-01-04 07:01] LABS: BICARBONATE 40.3 MEQ/L (21.0-32.0); CALCIUM 8.8 MG/DL (8.5-10.1); CREATININE 1.23 MG/DL (0.60-1.30)
[2018-01-04] MEDS: TIOTROPIUM BROMIDE 18 MCG INH INH SCH (09:00)
[2018-01-04] MEDS: MULTIVITAMINS/MINERALS THERAPEUTIC TAB PO SCH (09:00)
[2018-01-04] MEDS: ENOXAPARIN SODIUM 40 MG/0.4 ML SYRINGE SQ SCH (09:58)
[2018-01-04] MEDS: FUROSEMIDE 20 MG TAB PO SCH (09:59)
[2018-01-04] MEDS: DIGOXIN 0.125 MG TAB PO SCH (09:59)
[2018-01-04] MEDS: CYANOCOBALAMIN 1,000 MCG TAB PO SCH (09:59)
[2018-01-04] MEDS: ISOSORBIDE MONONITRATE 20 MG TAB PO SCH (09:59)
[2018-01-04] MEDS: ASPIRIN EC 81 MG TABEC PO SCH (09:59)
[2018-01-04] MEDS: DOCUSATE SODIUM 50 MG/SENNA 8.6 MG TAB PO SCH ×2 (09:59→21:55)
[2018-01-04] MEDS: GABAPENTIN 300 MG CAP PO SCH ×2 (10:00→21:54)
[2018-01-04] MEDS: SUCRALFATE 1 GM TAB PO SCH ×4 (10:00→21:55)
[2018-01-04] MEDS: BUDESONIDE-FORMOTEROL 160/4.5 MCG INHALER INH SCH ×2 (10:00→21:57)
[2018-01-04] MEDS: TAMSULOSIN HCL 0.4 MG CAP PO SCH ×2 (10:00→21:54)
[2018-01-04] MEDS: FINASTERIDE 5 MG TAB PO SCH (10:00)
[2018-01-04] MEDS: DILTIAZEM-CD 120 MG CAP ER PO SCH (10:00)
--- NOTE | 2018-01-04 10:01 | HHI.PR ---
Subjective Remarks Patient reports he is feeling better. Downgraded to a nasal cannula. He denies any chest pain. Pain is controlled. Objective Vitals Vital Signs Date Time Temp Pulse Resp B/P (MAP) Pulse Ox O2 Delivery O2 Flow Rate FiO2 01/04/18 09:27 90 Nasal Cannula 5.00 01/04/18 06:00 106 01/04/18 04:00 98.3 113 15 162/74 (103) 93 01/04/18 04:00 113 01/04/18 02:00 112 01/04/18 00:00 112 01/04/18 00:00 98.6 112 22 122/65 (84) 90 01/03/18 22:00 114 01/03/18 21:08 95 Nasal Cannula 6.00 01/03/18 20:00 99.0 115 24 97/59 (72) 89 01/03/18 20:00 115 01/03/18 19:00 91 Nasal Cannula 6.00 01/03/18 18:00 103 01/03/18 16:30 16 01/03/18 16:00 105 18 130/55 (80) 96 01/03/18 16:00 109 01/03/18 14:00 109 01/03/18 12:50 99.3 119 24 131/69 (89) 94 Simple Mask 6 01/03/18 12:30 99.3 108 16 133/61 (85) 94 Nasal Cannula 4 01/03/18 12:15 99.3 128 16 134/85 (101) 94 Simple Mask 6 01/03/18 12:03 99.3 141 16 140/92 (108) 93 Simple Mask 6 I/O 01/03/18 01/03/18 01/03/18 01/04/18 01/04/18 01/04/18 07:00 15:00 23:00 07:00 15:00 23:00 Intake Total 480 ml 650 ml 490 ml 680 ml Output Total 3750 ml 400 ml 1700 ml 1525 ml Balance -3270 ml 250 ml -1210 ml -845 ml Intake Oral 480 ml 240 ml 480 ml IV Total 650 ml 250 ml 200 ml Output Urine Total 3750 ml 300 ml 1700 ml 1525 ml Estimated Blood Loss 100 ml # Bowel Movements 0 0 Result Diagram: 01/04/18 0545 01/04/18 0545 Objective Remarks GENERAL: This is a well-nourished, well-developed patient, in no apparent distress. CARDIOVASCULAR: Normal rate and irregular rhythm without murmurs, gallops, or rubs. RESPIRATORY: Good respiratory efforts. Diminished breath sounds otherwise clear to auscultation bilaterally. GASTROINTESTINAL: Abdomen soft, non-tender, non-distended. Normal active bowel sounds MUSCULOSKELETAL: Left lower extremity postop. Neurovascularly intact at the foot. NEURO: Alert & Oriented x4 to person, place, time, situation. Moves all ext x4 PSYCH: Appropriate mood and affect. A/P Problem List: (1) Acute hypoxemic hypercarbic respiratory failure (2) Acute exacerbation of CHF (congestive heart failure) ICD Code: I50.9 - Heart failure, unspecified (3) Acute exacerbation of chronic obstructive pulmonary disease (COPD) ICD Code: J44.1 - Chronic obstructive pulmonary disease with (acute) exacerbation (4) Closed left ankle fracture ICD Code: S82.892A - Other fracture of left lower leg, initial encounter for closed fracture Status: Acute (5) Atrial fibrillation with RVR ICD Code: I48.91 - Unspecified atrial fibrillation Assessment and Plan 62-year-old male admitted with acute on chronic respiratory failure, left ankle fracture after fall. Patient is status post ICU course. Care transferred to hospitalist service. Acute on chronic hypoxemic and hypercarbic respiratory failure Acute COPD exacerbation -BiPAP 12/5 PRN. DuoNeb every 6 hours scheduled and as needed. -IV Solu-Medrol 125 mg given in the ED, on 60 mg IV every 8 hours. -Reduce to 40 mg IV q12h -Continue Symbicort and Spiriva -Levaquin empirically for COPD exacerbation. Change to oral. - Continue supplemental oxygen. May need simple mask at night. Left ankle fracture secondary to mechanical fall: -Orthopedics following. Status post ORIF. - Continue pain control. PT as tolerated CHF exacerbation Atrial fibrillation with RVR -Status post IV Lasix 40 mg 12 hour. Continue Lasix to 20 mg p.o. daily -Continue home rate control medications including digoxin Cardizem -Await 2D echo -Continue aspirin -Patient is not on full anticoagulation at home, He does not know why he is not on anticoagulant. Discussed with him that he meets criteria for anticoagulation. He is a poor Historian and I questioned his ability to comply with Coumadin. Would plan on discharging him on NOAC. Continue Lovenox for now. Type 2 diabetes -Electrolyte replacement per protocol -Sliding-scale insulin hold metformin PROPH: -Lovenox and PPI Discharge Planning Okay to transfer to floor today. Problem Qualifiers (1) Closed left ankle fracture: Qualified Codes: S82.892A - Other fracture of left lower leg, initial encounter for closed fracture Christiana Luna MD January 04, 2018 10:01
--- NOTE | 2018-01-04 12:28 | PD.ORT.PN ---
Subjective Post Op Day #: 1 Subjective Remarks pain tolerable Objective Vitals Vital Signs Date Time Temp Pulse Resp B/P (MAP) Pulse Ox O2 Delivery O2 Flow Rate FiO2 01/04/18 09:27 90 Nasal Cannula 5.00 01/04/18 06:00 106 01/04/18 04:00 98.3 113 15 162/74 (103) 93 01/04/18 04:00 113 01/04/18 02:00 112 01/04/18 00:00 112 01/04/18 00:00 98.6 112 22 122/65 (84) 90 01/03/18 22:00 114 01/03/18 21:08 95 Nasal Cannula 6.00 01/03/18 20:00 99.0 115 24 97/59 (72) 89 01/03/18 20:00 115 01/03/18 19:00 91 Nasal Cannula 6.00 01/03/18 18:00 103 01/03/18 16:30 16 01/03/18 16:00 105 18 130/55 (80) 96 01/03/18 16:00 109 01/03/18 14:00 109 01/03/18 12:50 99.3 119 24 131/69 (89) 94 Simple Mask 6 01/03/18 12:30 99.3 108 16 133/61 (85) 94 Nasal Cannula 4 I/O 01/03/18 01/03/18 01/03/18 01/04/18 01/04/18 01/04/18 07:00 15:00 23:00 07:00 15:00 23:00 Intake Total 480 ml 650 ml 490 ml 680 ml Output Total 3750 ml 400 ml 1700 ml 1525 ml Balance -3270 ml 250 ml -1210 ml -845 ml Intake Oral 480 ml 240 ml 480 ml IV Total 650 ml 250 ml 200 ml Output Urine Total 3750 ml 300 ml 1700 ml 1525 ml Estimated Blood Loss 100 ml # Bowel Movements 0 0 Result Diagram: 01/04/18 0545 01/04/18544 Objective Remarks in bed, nad splint c/d/i nvi sensation intact cap refill Assessment & Plan Ortho Post Op Day #: 1 Problem List: Assessment and Plan s/p ORIF L bimalleolar ankle fx NWB maintain splint unless becomes saturated lovenox med management currently in med ICU ortho stable, cleared when medically stable f/up dr. constantino 2 weeks Alvaro Talavera January 04, 2018 12:28
--- NOTE | 2018-01-04 17:38 | ECHRPT ---
Indication: Shortness of breath CONCLUSIONS The left ventricular systolic function is moderately reduced with an estimated ejection fraction in the range of 40-45%. normal leftventricular size and wall thickness the anteroseptal wall appears to be severely hypokinetic, BP: 162 / 74 HR: 113 Rhythm: MEASUREMENTS (Male / Female) Normal Values Technical Quality:Technically difficult study 2D ECHO LV Diastolic Diameter PLAX 5.6 cm 4.2 - 5.9 / 3.9 - 5.3 cm LV Systolic Diameter PLAX 4.5 cm IVS Diastolic Thickness 1.3 cm 0.6 - 1.0 / 0.6 - 0.9 cm LVPW Diastolic Thickness 1.2 cm 0.6 - 1.0 / 0.6 - 0.9 cm LV Relative Wall Thickness 0.5 M-MODE Aortic Root Diameter MM 3.6 cm LA Systolic Diameter MM 4.4 cm LA Ao Ratio MM 1.2 AV Cusp Separation MM 1.8 cm DOPPLER MV Peak Velocity 120.0 cm/s MV Peak Gradient 5.8 mmHg MV Mean Velocity 81.8 cm/s MV Mean Gradient 3.0 mmHg FINDINGS LEFT VENTRICLE Normal left ventricular size and wall thickness. The left ventricular systolic function is moderatel y reduced with an estimated ejection fraction in the range of 40-45%. RIGHT VENTRICLE Normal right ventricular size and systolic function. LEFT ATRIUM The left atrial size is normal. RIGHT ATRIUM The right atrial size is normal. ATRIAL SEPTUM Normal atrial septal thickness without atrial level shunting by limited color doppler interrogation. AORTA The aortic root and proximal ascending aorta are normal in size on limited imaging. MITRAL VALVE Structurally normal mitral valve. No mitral valve stenosis or regurgitation. AORTIC VALVE Trileaflet aortic valve. No aortic valve stenosis or regurgitation. TRICUSPID VALVE Structurally normal tricuspid valve. No tricuspid valve stenosis or regurgitation. PULMONARY VALVE The pulmonary valve is not well visualized. VESSELS The inferior vena cava is normal in size. PERICARDIUM No pericardial effusion. Nathaniel Diaz MD, FACC, FSCAI (Electronically Signed) Final Date:04 Jan 2018 17:36
[2018-01-04] MEDS: ACETAMINOPHEN/HYDROcodone 325 MG/7.5 MG TAB PO PRN (21:55)
[2018-01-05] VITALS (10 sets, daily range): BP systolic 123–162; BP diastolic 73–88; PULSE 66–108; RESP 18–20; TEMP 97.5–98.3; O2SAT 91–99
[2018-01-05] MEDS: INSULIN ASPART SUPPLEMENTAL SCALE SQ SCH ×6 (01:19→21:56)
[2018-01-05] MEDS ORDERED: MORPHINE SULFATE 4 MG/ML INJ IV PUSH ONE (02:00)
[2018-01-05] MEDS: RESP: ALBUTEROL 2.5 MG/IPRATROPIUM 0.5 MG NEB (SCH) NEB ×4 (05:29→20:24)
[2018-01-05] MEDS: PANTOPRAZOLE SOD 20 MG DELAYED RELEASE TAB PO SCH ×2 (05:46→15:43)
[2018-01-05 06:21] LABS: HEMATOCRIT 33.4 % (39.0-51.0); HEMOGLOBIN 10.6 GM/DL (13.0-17.0); MEAN CELL VOLUME 79.3 FL (80.0-100.0); MEAN CORPUSCULAR HEMOGLOBIN 25.2 PG (27.0-34.0); MEAN CORPUSCULAR HGB CONC 31.7 % (32.0-36.0); MEAN PLATELET VOLUME 8.1 FL (7.0-11.0); PLATELET COUNT 246 TH/MM3 (150-450); RED BLOOD COUNT 4.21 MIL/MM3 (4.50-5.90); RED CELL DISTRIBUTION WIDTH 16.1 % (11.6-17.2); WHITE BLOOD COUNT 8.4 TH/MM3 (4.0-11.0)
[2018-01-05 06:52] LABS: BICARBONATE 38.6 MEQ/L (21.0-32.0); CALCIUM 9.2 MG/DL (8.5-10.1); CREATININE 1.24 MG/DL (0.60-1.30)
[2018-01-05] MEDS: FINASTERIDE 5 MG TAB PO SCH (09:00)
[2018-01-05] MEDS: DOCUSATE SODIUM 50 MG/SENNA 8.6 MG TAB PO SCH ×2 (09:00→21:54)
[2018-01-05] MEDS: ISOSORBIDE MONONITRATE 20 MG TAB PO SCH (09:00)
[2018-01-05] MEDS: FUROSEMIDE 20 MG TAB PO SCH (09:00)
[2018-01-05] MEDS: TIOTROPIUM BROMIDE 18 MCG INH INH SCH (09:00)
[2018-01-05] MEDS: CYANOCOBALAMIN 1,000 MCG TAB PO SCH (09:07)
[2018-01-05] MEDS: methylPREDNISolone SOD SUCC 40 MG/1 ML VIAL IV PUSH SCH (09:07)
[2018-01-05] MEDS: GABAPENTIN 300 MG CAP PO SCH ×2 (09:09→21:54)
[2018-01-05] MEDS: MULTIVITAMINS/MINERALS THERAPEUTIC TAB PO SCH (09:09)
[2018-01-05] MEDS: DILTIAZEM-CD 120 MG CAP ER PO SCH (09:10)
[2018-01-05] MEDS: DIGOXIN 0.125 MG TAB PO SCH (09:10)
[2018-01-05] MEDS: TAMSULOSIN HCL 0.4 MG CAP PO SCH ×2 (09:10→21:54)
[2018-01-05] MEDS: SUCRALFATE 1 GM TAB PO SCH ×4 (09:10→21:55)
[2018-01-05] MEDS: ASPIRIN EC 81 MG TABEC PO SCH (09:10)
[2018-01-05] MEDS: BUDESONIDE-FORMOTEROL 160/4.5 MCG INHALER INH SCH ×2 (09:18→21:55)
--- NOTE | 2018-01-05 11:11 | HHI.PR ---
Subjective Remarks Patient reports she is feeling very weak. Still using 5 L of oxygen on nasal cannula. Objective Vitals Vital Signs Date Time Temp Pulse Resp B/P (MAP) Pulse Ox O2 Delivery O2 Flow Rate FiO2 01/05/18 09:00 98.3 108 20 123/75 (91) 99 01/05/18 08:52 93 Nasal Cannula 4.00 01/05/18 07:00 Nasal Cannula 5.00 01/05/18 06:00 97.9 80 18 155/76 (102) 92 01/05/18 00:00 97.9 100 18 162/78 (106) 92 01/04/18 22:35 96 Nasal Cannula 4.00 01/04/18 20:00 Nasal Cannula 5.00 01/04/18 18:00 103 01/04/18 17:00 16 01/04/18 16:00 98.2 104 15 130/64 (86) 93 01/04/18 16:00 104 01/04/18 12:00 106 01/04/18 12:00 98.6 106 22 128/59 (82) 92 I/O 01/04/18 01/04/18 01/04/18 01/05/18 01/05/18 01/05/18 07:00 15:00 23:00 07:00 15:00 23:00 Intake Total 680 ml 600 ml 0 ml Output Total 1525 ml 1650 ml 0 ml Balance -845 ml -1050 ml 0 ml Intake Oral 480 ml 500 ml 0 ml IV Total 200 ml 100 ml Output Urine Total 1525 ml 1650 ml 0 ml # Bowel Movements 0 Result Diagram: 01/05/18 0450 01/05/18 0450 Objective Remarks GENERAL: This is a well-nourished, well-developed patient, in no apparent distress. CARDIOVASCULAR: Normal rate and irregular rhythm without murmurs, gallops, or rubs. RESPIRATORY: Good respiratory efforts. Diminished breath sounds otherwise clear to auscultation bilaterally. GASTROINTESTINAL: Abdomen soft, non-tender, non-distended. Normal active bowel sounds MUSCULOSKELETAL: Left lower extremity postop. Neurovascularly intact at the foot. NEURO: Alert & Oriented x4 to person, place, time, situation. Moves all ext x4 PSYCH: Appropriate mood and affect. A/P Problem List: (1) Acute hypoxemic hypercarbic respiratory failure (2) Acute exacerbation of CHF (congestive heart failure) ICD Code: I50.9 - Heart failure, unspecified (3) Acute exacerbation of chronic obstructive pulmonary disease (COPD) ICD Code: J44.1 - Chronic obstructive pulmonary disease with (acute) exacerbation (4) Closed left ankle fracture ICD Code: S82.892A - Other fracture of left lower leg, initial encounter for closed fracture Status: Acute (5) Atrial fibrillation with RVR ICD Code: I48.91 - Unspecified atrial fibrillation Assessment and Plan 62-year-old male admitted with acute on chronic respiratory failure, left ankle fracture after fall. Patient is status post ICU course. Care transferred to hospitalist service. Acute on chronic hypoxemic and hypercarbic respiratory failure Acute COPD exacerbation -BiPAP 12/5 PRN. DuoNeb every 6 hours scheduled and as needed. -Change to oral steroids. -Continue Symbicort and Spiriva -Levaquin empirically for COPD exacerbation. - Continue supplemental oxygen. May need simple mask at night. Left ankle fracture secondary to mechanical fall: -Orthopedics following. Status post ORIF. - Continue pain control. PT as tolerated -Patient is very deconditioned. Will need rehab. CHF exacerbation Atrial fibrillation with RVR -Status post IV Lasix 40 mg 12 hour. Continue Lasix to 20 mg p.o. daily -Continue home rate control medications including digoxin Cardizem -LVEF 40-45% -Continue aspirin -Patient is not on full anticoagulation at home, He does not know why he is not on anticoagulant. Discussed with him that he meets criteria for anticoagulation. He is a poor Historian and I questioned his ability to comply with Coumadin. He chose NOAC after discussions with him. Will start him on Eliquis Type 2 diabetes -Electrolyte replacement per protocol -Sliding-scale insulin hold metformin PROPH: -Lovenox and PPI Discharge Planning Continue management as above. Patient is very deconditioned. Will need SNF placement in the next 24-48 hours. DW case management. Problem Qualifiers (1) Closed left ankle fracture: Qualified Codes: S82.892A - Other fracture of left lower leg, initial encounter for closed fracture Christiana Luna MD January 05, 2018 11:11
[2018-01-05] MEDS: ENOXAPARIN SODIUM 40 MG/0.4 ML SYRINGE SQ SCH (13:25)
[2018-01-05] MEDS: ACETAMINOPHEN/HYDROcodone 325 MG/7.5 MG TAB PO PRN ×2 (15:45→21:54)
[2018-01-05] MEDS: APIXABAN 5 MG TABLET PO SCH (21:54)
[2018-01-06] MEDS: INSULIN ASPART SUPPLEMENTAL SCALE SQ SCH ×4 (01:04→13:13)
[2018-01-06] MEDS: RESP: ALBUTEROL 2.5 MG/IPRATROPIUM 0.5 MG NEB (SCH) NEB ×2 (03:23→07:50)
[2018-01-06 04:40] VITALS: BP 158/82; PULSE 96; RESP 20; TEMP 97.6; O2SAT 92
[2018-01-06] MEDS: ACETAMINOPHEN/HYDROcodone 325 MG/7.5 MG TAB PO PRN ×2 (06:09→09:25)
[2018-01-06] MEDS: PANTOPRAZOLE SOD 20 MG DELAYED RELEASE TAB PO SCH (06:09)
[2018-01-06 08:10] VITALS: BP 160/95; PULSE 104; RESP 20; TEMP 97.4; O2SAT 94
[2018-01-06 08:12] LABS: HEMATOCRIT 33.8 % (39.0-51.0); HEMOGLOBIN 10.4 GM/DL (13.0-17.0); MEAN CELL VOLUME 79.4 FL (80.0-100.0); MEAN CORPUSCULAR HEMOGLOBIN 24.5 PG (27.0-34.0); MEAN CORPUSCULAR HGB CONC 30.9 % (32.0-36.0); MEAN PLATELET VOLUME 7.9 FL (7.0-11.0); PLATELET COUNT 242 TH/MM3 (150-450); RED BLOOD COUNT 4.26 MIL/MM3 (4.50-5.90); RED CELL DISTRIBUTION WIDTH 16.5 % (11.6-17.2); WHITE BLOOD COUNT 7.9 TH/MM3 (4.0-11.0)
[2018-01-06 08:34] LABS: BICARBONATE 38.6 MEQ/L (21.0-32.0); CALCIUM 9.2 MG/DL (8.5-10.1); CREATININE 1.04 MG/DL (0.60-1.30)
[2018-01-06] MEDS: CYANOCOBALAMIN 1,000 MCG TAB PO SCH (09:21)
[2018-01-06] MEDS: DILTIAZEM-CD 120 MG CAP ER PO SCH (09:21)
[2018-01-06] MEDS: TAMSULOSIN HCL 0.4 MG CAP PO SCH (09:21)
[2018-01-06] MEDS: DIGOXIN 0.125 MG TAB PO SCH (09:22)
[2018-01-06] MEDS: MULTIVITAMINS/MINERALS THERAPEUTIC TAB PO SCH (09:23)
[2018-01-06] MEDS: APIXABAN 5 MG TABLET PO SCH (09:23)
[2018-01-06] MEDS: ISOSORBIDE MONONITRATE 20 MG TAB PO SCH (09:23)
[2018-01-06] MEDS: FUROSEMIDE 20 MG TAB PO SCH (09:24)
[2018-01-06] MEDS: GABAPENTIN 300 MG CAP PO SCH (09:24)
[2018-01-06] MEDS: ASPIRIN EC 81 MG TABEC PO SCH (09:24)
[2018-01-06] MEDS: SUCRALFATE 1 GM TAB PO SCH ×2 (09:24→12:42)
[2018-01-06] MEDS: FINASTERIDE 5 MG TAB PO SCH (09:24)
[2018-01-06] MEDS: DOCUSATE SODIUM 50 MG/SENNA 8.6 MG TAB PO SCH (09:24)
--- NOTE | 2018-01-06 09:45 | HHI.PR ---
Subjective Remarks Feels better. Pain is fairly controlled by meds Less sob Did not have a BM however with meds had a Bm today Objective Vitals Vital Signs Date Time Temp Pulse Resp B/P (MAP) Pulse Ox O2 Delivery O2 Flow Rate FiO2 01/06/18 04:40 97.6 96 20 158/82 (107) 92 01/05/18 23:10 97.6 107 20 157/73 (101) 91 01/05/18 20:25 93 Nasal Cannula 4.00 01/05/18 20:00 Nasal Cannula 5.00 01/05/18 20:00 Nasal Cannula 5.00 01/05/18 20:00 97.8 97 18 154/88 (110) 93 01/05/18 16:00 97.5 75 18 144/82 (102) 92 01/05/18 12:00 97.7 73 20 159/81 (107) 92 I/O 01/05/18 01/05/18 01/05/18 01/06/18 01/06/18 01/06/18 07:00 15:00 23:00 07:00 15:00 23:00 Intake Total 100 ml 1680 ml 340 ml Output Total 0 ml 1700 ml 1025 ml Balance 100 ml -20 ml -685 ml Intake Oral 0 ml 1680 ml 240 ml IV Total 100 ml 100 ml Output Urine Total 0 ml 1700 ml 1025 ml # Bowel Movements 0 0 0 Result Diagram: 01/06/18 0530 01/06/18 0532 Imaging Last Impressions Chest X-Ray 01/03/18 0600 Signed Impressions: Service Date/Time: Wednesday, January 03, 2018 04:24 - CONCLUSION: Mild cardiomegaly with no acute cardiopulmonary disease. Froylan Feliciano MD Ankle X-Ray 01/03/18 0000 Signed Impressions: Service Date/Time: Wednesday, January 03, 2018 11:35 - CONCLUSION: Anatomic alignment.. Derian Oneill MD FACR Objective Remarks GENERAL: This is a well-nourished, well-developed patient, in no apparent distress. CARDIOVASCULAR: Normal rate and irregular rhythm without murmurs, gallops, or rubs. RESPIRATORY: Good respiratory efforts. Diminished breath sounds otherwise clear to auscultation bilaterally. GASTROINTESTINAL: Abdomen soft, non-tender, non-distended. Normal active bowel sounds MUSCULOSKELETAL: Left lower extremity postop. Neurovascularly intact at the foot. NEURO: Alert & Oriented x4 to person, place, time, situation. Moves all ext x4 PSYCH: Appropriate mood and affect. Procedures s/p ORIF L bimalleolar ankle fx by Dr Powell on 01/03/18 A/P Problem List: (1) Acute hypoxemic hypercarbic respiratory failure (2) Acute exacerbation of CHF (congestive heart failure) ICD Code: I50.9 - Heart failure, unspecified Status: Acute (3) Acute exacerbation of chronic obstructive pulmonary disease (COPD) ICD Code: J44.1 - Chronic obstructive pulmonary disease with (acute) exacerbation Status: Acute (4) Closed left ankle fracture ICD Code: S82.892A - Other fracture of left lower leg, initial encounter for closed fracture Status: Acute (5) Atrial fibrillation with RVR ICD Code: I48.91 - Unspecified atrial fibrillation Status: Acute Assessment and Plan 62-year-old male admitted with acute on chronic respiratory failure, left ankle fracture after fall. Patient is status post ICU course. Care transferred to hospitalist service. Acute on chronic hypoxemic and hypercarbic respiratory failure. Resolved Acute COPD exacerbation. Resolved -BiPAP 12/5 PRN. DuoNeb every 6 hours scheduled and as needed. -Change to oral steroids, taper -Continue Symbicort and Spiriva -Levaquin empirically for COPD exacerbation. - Continue supplemental oxygen. May need simple mask at night. Left ankle fracture secondary to mechanical fall: -Orthopedics following. Status post ORIF. s/p ORIF L bimalleolar ankle fx by Dr Powell on 01/03/18 NWB affceted leg left leg - Continue pain control. PT as tolerated -Patient is very deconditioned. Will need rehab. CHF with preserved EF 40-45% with exacerbation Atrial fibrillation with RVR -Status post IV Lasix 40 mg 12 hour. Continue Lasix to 20 mg p.o. daily -Continue home rate control medications including digoxin Cardizem -LVEF 40-45% -Continue aspirin -Patient is not on full anticoagulation at home, He does not know why he is not on anticoagulant. Discussed with him that he meets criteria for anticoagulation. He is a poor Historian and I questioned his ability to comply with Coumadin. He chose NOAC after discussions with him. Start him on Eliquis Type 2 diabetes -Electrolyte replacement per protocol -Sliding-scale insulin hold metformin PROPH: -Lovenox and PPI Discharge Planning Continue management as above. Patient is very deconditioned. Repeat CXR 01/06 reviewed and no cute findings. Had a BM. [facility]. Discharge plan discussed with the patient Problem Qualifiers (1) Closed left ankle fracture: Qualified Codes: S82.892A - Other fracture of left lower leg, initial encounter for closed fracture Melissa Browne MD January 06, 2018 09:45
--- NOTE | 2018-01-06 09:46 | HHI.DS ---
Discharge Summary Admission Date January 02, 2018 at 11:51 Discharge Date: January 06, 2018 Admitting Diagnosis CHF exacerbation, hypercapnia, closed left ankle fracture (1) Acute hypoxemic hypercarbic respiratory failure Diagnosis: Principal (2) Acute exacerbation of CHF (congestive heart failure) ICD Code: I50.9 - Heart failure, unspecified Diagnosis: Principal Status: Acute (3) Acute exacerbation of chronic obstructive pulmonary disease (COPD) ICD Code: J44.1 - Chronic obstructive pulmonary disease with (acute) exacerbation Diagnosis: Principal Status: Acute (4) Closed left ankle fracture ICD Code: S82.892A - Other fracture of left lower leg, initial encounter for closed fracture Diagnosis: Principal Status: Acute (5) Atrial fibrillation with RVR ICD Code: I48.91 - Unspecified atrial fibrillation Diagnosis: Principal Status: Acute Procedures s/p ORIF L bimalleolar ankle fx by Dr Powell on 01/03/18 NWB affected leg left leg Brief History - From Admission Patient is a 62-year-old male with past medical history significant for COPD on home oxygen 4 L, CHF, atrial fibrillation who presented to the emergency department for evaluation of left ankle pain after sustaining a fall. He felt weak, dizzy after waking up today and sustained a fall, had immediate pain to his bilateral ankles, predominantly left foot and ankle. X-ray of the left foot showed comminuted mildly displaced fractures of the medial malleolus, distal fibula and possible posterior tibial fracture. Dr. Janel mack was consulted and patient's left foot was placed in a splint. The patient was hypoxemic and in moderate respiratory distress in the ED. His ABG on 6 L nasal cannula showed 7.3/80 7/69. Patient was placed on BiPAP 10/ with some improvement oxygenation. Chest x-ray showed evidence of CHF. Patient received IV Solu-Medrol and breathing treatments and critical care was requested to admit this patient for COPD CHF exacerbation and acute hypoxemic and hypercapnic respiratory failure. I evaluated the patient in the ED. He is in moderate distress on BiPAP. I am unable to get much history from him due to his shortness of breath on BiPAP. I have added IV Lasix 40 mg every 12, added scheduled Solu-Medrol and DuoNeb breathing treatments. Also empiric Levaquin for COPD exacerbation. His heart rate is 117-120. I will give additional dose of digoxin 0.25 mg IV 1. Patient may need esmolol or Amiodarone infusion if rate is not adequately controlled CBC/BMP: 01/06/18 0530 01/06/18 0532 Significant Findings Laboratory Tests Test 01/04/18 05:45 01/05/18 04:50 01/06/18 05:30 01/06/18 05:32 Red Blood Count 4.12 MIL/MM3 (4.50-5.90) 4.21 MIL/MM3 (4.50-5.90) 4.26 MIL/MM3 (4.50-5.90) Hemoglobin 10.3 GM/DL (13.0-17.0) 10.6 GM/DL (13.0-17.0) 10.4 GM/DL (13.0-17.0) Hematocrit 32.7 % (39.0-51.0) 33.4 % (39.0-51.0) 33.8 % (39.0-51.0) Mean Corpuscular Volume 79.5 FL (80.0-100.0) 79.3 FL (80.0-100.0) 79.4 FL (80.0-100.0) Mean Corpuscular Hemoglobin 25.1 PG (27.0-34.0) 25.2 PG (27.0-34.0) 24.5 PG (27.0-34.0) Mean Corpuscular Hemoglobin Concent 31.6 % (32.0-36.0) 31.7 % (32.0-36.0) 30.9 % (32.0-36.0) Blood Urea Nitrogen 32 MG/DL (7-18) 39 MG/DL (7-18) 38 MG/DL (7-18) Random Glucose 159 MG/DL (74-106) 167 MG/DL (74-106) 117 MG/DL (74-106) Chloride Level 95 MEQ/L (98-107) 96 MEQ/L (98-107) Carbon Dioxide Level 40.3 MEQ/L (21.0-32.0) 38.6 MEQ/L (21.0-32.0) 38.6 MEQ/L (21.0-32.0) Estimat Glomerular Filtration Rate 60 ML/MIN (>89) 59 ML/MIN (>89) 72 ML/MIN (>89) Imaging Last Impressions Chest X-Ray 01/06/18 0000 Signed Impressions: Service Date/Time: Saturday, January 06, 2018 09:57 - CONCLUSION: 1. No acute abnormality or significant interval change. Allan Acharya MD Ankle X-Ray 01/03/18 0000 Signed Impressions: Service Date/Time: Wednesday, January 03, 2018 11:35 - CONCLUSION: Anatomic alignment.. Derian Oneill MD FACR PE at Discharge GENERAL: This is a well-nourished, well-developed patient, in no apparent distress. CARDIOVASCULAR: Normal rate and irregular rhythm without murmurs, gallops, or rubs. RESPIRATORY: Good respiratory efforts. Diminished breath sounds otherwise clear to auscultation bilaterally. GASTROINTESTINAL: Abdomen soft, non-tender, non-distended. Normal active bowel sounds MUSCULOSKELETAL: Left lower extremity postop. Neurovascularly intact at the foot. NEURO: Alert & Oriented x4 to person, place, time, situation. Moves all ext x4 PSYCH: Appropriate mood and affect. Hospital Course 62-year-old male admitted with acute on chronic respiratory failure, left ankle fracture after fall. Patient is status post ICU course. Care transferred to hospitalist service. Acute on chronic hypoxemic and hypercarbic respiratory failure. Resolved Acute COPD exacerbation. Resolved. -BiPAP 12/5 PRN. DuoNeb every 6 hours scheduled and as needed. -Change to oral steroids, taper -Continue Symbicort and Spiriva -Levaquin empirically for COPD exacerbation. - Continue supplemental oxygen. May need simple mask at night. - To have PFTs as OP. To follow up as OP with pulm. Patient also with morbid obesity might need a sleep study as well as OP. Left ankle fracture secondary to mechanical fall: -Orthopedics following. Status post ORIF. s/p ORIF L bimalleolar ankle fx by Dr Powell on 01/03/18 NWB affected leg left leg - Continue pain control. PT as tolerated -Patient is very deconditioned. Will need rehab. CHF with preserved EF 40-45% with exacerbation Atrial fibrillation with RVR -Status post IV Lasix 40 mg 12 hour. Continue Lasix to 20 mg p.o. daily -Continue home rate control medications including digoxin Cardizem -LVEF 40-45% -Continue aspirin -Patient is not on full anticoagulation at home, He does not know why he is not on anticoagulant. Discussed with him that he meets criteria for anticoagulation. He is a poor Historian and I questioned his ability to comply with Coumadin. He chose NOAC after discussions with him. Start him on Eliquis Type 2 diabetes -Electrolyte replacement per protocol -Sliding-scale insulin hold metformin PROPH: -Lovenox and PPI Discharge Planning Patient is very deconditioned needs rehab. Repeat CXR 01/06 reviewed and no cute findings. Had a BM. DC to [place] [facility] today. Discharge plan discussed with the patient Pt Condition on Discharge: Stable Discharge Disposition: Rehab Inpatient Discharge Time: > 30 minutes Discharge Instructions DIET: Follow Instructions for: Heart Healthy Diet, Diabetic Diet Activities you can perform: Non Weight Bearing (affected leg ) Follow up Referrals: Cardiology - 1 Week Orthopedics - 2 Weeks with Alvaro Powell MD PCP Follow-up - 2-3 Days Pulmonology - 1 Week New Orders: PULMONARY FUNCTION TEST New Medications: Albuterol 18 GM Inh (Ventolin Hfa 18 GM Inh) 90 Mcg/Act Aer 2 PUFF INH Q4-6H PRN for SHORTNESS OF BREATH, #1 INHALER 0 Refills Aspirin (Aspirin Low Dose) 81 Mg Chew 81 MG CHEW BID for Prevent Blood Clot for 30 Days, #60 TAB 0 Refills Budesonide-Formoterol Inh (Symbicort Inh) 160-4.5 Mcg/Act Aero 2 PUFF INH Q12HR, #1 INHALER 0 Refills Hydrocodone-Acetaminophen (Theodore) 7.5-325 mg Tab 1-2 TAB PO Q6H PRN for PAIN, #90 TAB 0 Refills Apixaban (Eliquis) 5 Mg Tab 5 MG PO BID for Blood Clot Prevention, #60 TAB Furosemide (Furosemide) 20 Mg Tab 20 MG PO DAILY for Blood Pressure Management, #30 TAB Sennosides-Docusate Sodium (Gnp Senna Plus 8.6-50 mg) 8.6 Mg-50 Mg Tab 1 TAB PO BID for Constipation, #60 TAB Tiotropium Inh (Spiriva Handihaler) 18 Mcg Cap 18 MCG INH DAILY for Shortness of Breath for 30 Days, #30 CAP 1 capsule = 18 mcg Continued Medications: Aspirin DR (Aspirin Adult Low Strength) 81 Mg Tabdr 81 MG PO DAILY, TAB Cyanocobalamin (Vitamin B-12) 1,000 Mcg Tab 1000 MCG PO DAILY for Nutritional Supplement, #1 BOTTLE 0 Refills Digoxin (Lanoxin) 125 Mcg Tablet 125 MCG PO DAILY Diltiazem CD 24 HR (Diltiazem CD 24 HR) 120 Mg Caper 120 MG PO DAILY, #30 CAP 0 Refills Finasteride (Proscar) 5 Mg Tab 5 MG PO DAILY for Manage Prostate Problems, #30 TAB 0 Refills Do not crush. Gabapentin (Gabapentin) 300 Mg Cap 300 MG PO BID, #60 CAP 0 Refills Hydrocodone/Acetaminophen (Hydrocodone-Acetamin 5-325 mg) 5 Mg-325 Mg Tablet 1 TAB PO Q6HR PRN for PAIN Isosorbide Mononitrate ER (Isosorbide Mononitrate ER) 30 Mg Ceasar 15 MG PO DAILY for Prevent Chest Pain, #30 TAB 0 Refills Lisinopril (Lisinopril) 5 Mg Tab 5 MG PO DAILY for Blood Pressure Management, #30 TAB 0 Refills Metformin (Metformin) 500 Mg Tab 500 MG PO BID for Blood Sugar Management, #60 TAB 0 Refills Multiple Vitamin (One-A-Day Mens) 400 Mcg-300 Mcg Tab 1 TAB PO DAILY for Nutritional Supplement Omeprazole (Omeprazole) 20 Mg Tab 20 MG PO BIDAC, #30 TAB 0 Refills Sucralfate (Carafate) 1 Gram Tab 1 GM PO ACHS for Reflux, #90 TAB 0 Refills On empty stomach Tamsulosin (Flomax) 0.4 Mg Cap 0.4 MG PO BID for Manage Prostate Problems, #30 CAP 0 Refills Vitamin E Acid Succinate (Vitamin E) 400 Unit Tablet 400 UNITS PO DAILY for Nutritional Supplement Melissa Browne MD January 06, 2018 09:46
--- NOTE | 2018-01-06 10:36 | RADRPT ---
EXAM DATE/TIME: 01/06/2018 09:57 [facility] COMPARISON: CHEST SINGLE AP, January 03, 2018, 4:24. INDICATIONS : Short of breath. MEDICAL HISTORY : Left ankle fractures. SURGICAL HISTORY : Orif left ankle. ENCOUNTER: Subsequent ACUITY: 1 week PAIN SCORE: 8/10 LOCATION: Bilateral chest FINDINGS: No new focal pleural or parenchymal opacities. Cardiomediastinal contours are stable with mild enlarg ement of the cardiac silhouette. Remainder of the exam is unchanged. CONCLUSION: 1. No acute abnormality or significant interval change. Allan Acharya MD on January 06, 2018 at 10:33 Board Certified Radiologist. This report was verified electronically.
[2018-01-06] MEDS ORDERED: VENTAER INH (10:51)
[2018-01-06] MEDS ORDERED: SPIRCAP INH (10:51)
[2018-01-06] MEDS ORDERED: PERI PO (10:51)
[2018-01-06] MEDS ORDERED: SYMB160A INH (10:51)
[2018-01-06] MEDS ORDERED: FURO20TA PO (10:51)
[2018-01-06] MEDS ORDERED: APIX5TAB PO (10:51)
[2018-01-06] MEDS ORDERED: LACTULOSE SYRUP 20 GM/30 ML CUP PO PRN (12:00)
[2018-01-06] MEDS ORDERED: LACTULOSE SYRUP 20 GM/30 ML CUP PO ONE (12:00)
[2018-01-06 12:10] VITALS: BP 163/106; PULSE 101; RESP 20; TEMP 97.3; O2SAT 93
[2018-01-06] MEDS: TIOTROPIUM BROMIDE 18 MCG INH INH SCH (12:39)
[2018-01-06] MEDS: BUDESONIDE-FORMOTEROL 160/4.5 MCG INHALER INH SCH (12:40)
--- NOTE | 2018-01-06 19:04 | PQ ---
Physician Query Response Document PATIENT: KATHRYN CONRAD : 1955 ADMIT DATE: 01/02/2018 11:51 AM DISCH DATE: 01/06/2018 3:02 PM RESPONDING PROVIDER #: [email or web address] QUERY TEXT: CDS Clarification Acute on chronic systolic (congestive) heart failure, POA in the setting of COPD exacerbation and Acu te respiratory failure, requiring treatment with IV diuretics -Other explanation of clinical findings. -Unable to determine (no explanation for clinical findings). The patient's Clinical Indicators include: The medical record reflects the following clinical findings, treatment, and risk factors. * Clinical Indicators - BNP 107, LVEF 40-45% per Echo, CXR findings consistent w/ CHF and pulmonary e manuela * Risk Factors - H/O COPD on home O2 4L, chronic A fib, CHF * Treatment - IV Lasix 40 mg q12h Please clarify and document your clinical opinion in the progress notes and discharge summary includi ng the definitive and/or presumptive diagnosis (suspected or probable), related to the above clinical findings. Please include clinical findings supporting your diagnosis. Thank you, Vannessa Blanco CDS: Vannessa Blanco Contact Number: CDS/CAREER SERVICES MANAGER ext. [phone] Query created by: Vannessa Blanco on 01/06/2018 10:04 AM RESPONSE TEXT: CHF with preserved EF 40-45% with exacerbation Electronically signed by: Melissa Browne MD 01/06/2018 7:00 PM
== END 2018-01-06 15:02 | DRG 492 ==
LOC: NEPE 09:43 → NEDA 11:51 → HIME 16:15 → N04A 01-04 18:39
PROVIDERS: ADMIT Hospitalist; ATTEND Hospitalist
PROC: 5A09357 Assistance with Respiratory Ventilation, Less than 24 Consecutive Hours, Continuous Positive Airway Pressure (ICD-10-PCS; 2018-01-02)
PROC: 0QSK04Z Reposition Left Fibula with Internal Fixation Device, Open Approach (ICD-10-PCS; 2018-01-03)
PROC: 0QSH04Z Reposition Left Tibia with Internal Fixation Device, Open Approach (ICD-10-PCS; principal; 2018-01-03 10:13)
DX: S82.852A Displaced trimalleolar fracture of left lower leg, initial encounter for closed fracture (principal); J96.21 Acute and chronic respiratory failure with hypoxia; I50.9 Heart failure, unspecified; J96.22 Acute and chronic respiratory failure with hypercapnia; J44.1 Chronic obstructive pulmonary disease with (acute) exacerbation; M25.571 Pain in right ankle and joints of right foot; W18.30XA Fall on same level, unspecified, initial encounter; I48.2 Chronic atrial fibrillation; E66.01 Morbid (severe) obesity due to excess calories; E11.9 Type 2 diabetes mellitus without complications; Z99.81 Dependence on supplemental oxygen; Z68.37 Body mass index [BMI] 37.0-37.9, adult; Z79.84 Long term (current) use of oral hypoglycemic drugs; Z87.891 Personal history of nicotine dependence
CPT/HCPCS: 29515; 36600; 71045; 73600; 73610; 76000; 80048; 80053; 80162; 81001; 82550; 82805; 82948; 83605; 83735; 83880; 84484; 85025; 85027; 85610; 85730; 87040; 87086; 87641; 87804; 93005; 93306; 94002; 94150; 94640; 94664; 96374; 96375; C1713; J0131; J0690; J1160; J1644; J1650; J1815; J1940; J1956; J2250; J2270; J2920; J2930; J3010; J3370; J7050; J7613